=== PATIENT | male | born 1975 | race Caucasian/White ===

== ENCOUNTER 2017-05-05 12:20 | Emergency (ER) | payer SELFPAY ==
[~2017-05-05] VITALS: Ht 172.7 cm; Wt 105.1 kg
[2017-05-05] MEDS ORDERED: SODIUM CHLORIDE 0.9% 1,000 ML IV ONE (12:59)
[2017-05-05 13:24] LABS: MEAN CORPUSCULAR HEMOGLOBIN 26.1 pg (27.5-34.5); MEAN CORPUSCULAR HGB CONC 33.6 g/dL (33.2-36.2); MEAN CORPUSCULAR VOLUME 77.9 fL (81-97); MEAN PLATELET VOLUME 6.6 fL (7.4-10.4); PLATELET COUNT 224 x10^3/uL (130-400); RED BLOOD COUNT 4.39 x10^6/uL (4.38-5.82); RED CELL DISTRIBUTION WIDTH 18.5 % (9.4-14.8)
[2017-05-05 13:31] LABS: ALBUMIN 3.6 g/dL (3.4-5.0); ANION GAP 8 mmol/L (5-15); CALCIUM 8.8 mg/dL (8.5-10.1); CHLORIDE 104 mmol/L (98-107); CREATININE 0.98 mg/dL (0.7-1.3)
[2017-05-05 13:38] LABS: BASOPHILS # (AUTO) 0.04 x10^3/uL (0-0.1); BASOPHILS % (AUTO) 1 % (0-1); EOSINOPHILS % (AUTO) 1 % (1-7); LYMPHOCYTES # (AUTO) 2.12 x10^3/uL (1-3.4); LYMPHOCYTES % (AUTO) 29 % (22-44); MD SCAN; MONOCYTES # (AUTO) 0.87 x10^3/uL (0.2-0.8); MONOCYTES % (AUTO) 12 % (2-9); NEUTROPHILS # (AUTO) 4.24 x10^3/uL (1.8-6.8); NEUTROPHILS % (AUTO) 58 % (42-75)
[2017-05-05 16:19] VITALS: BP 135/65
== END 2017-05-05 16:21 | disposition home or self-care (01) ==
LOC: ED 14:14
DX: M79.621 Pain in right upper arm (principal); M79.622 Pain in left upper arm
CPT/HCPCS: 36415; 80048; 82040; 85025; 93005; 93970; 99285

== ENCOUNTER 2017-05-10 09:19 | Inpatient (IN) | payer MEDICAID, OTHER ==
[~2017-05-10] VITALS: Ht 172.7 cm; Wt 107.4 kg
[2017-05-10] MEDS ORDERED: SODIUM CHLORIDE FLUSH 10ML SYR IVF ONE (11:00)
[2017-05-10 11:51] LABS: BASOPHILS # (AUTO) 0.03 x10^3/uL (0-0.1); BASOPHILS % (AUTO) 0 % (0-1); EOSINOPHILS # (AUTO) 0.13 x10^3/uL (0-0.4); EOSINOPHILS % (AUTO) 2 % (1-7); LYMPHOCYTES # (AUTO) 2.57 x10^3/uL (1-3.4); LYMPHOCYTES % (AUTO) 32 % (22-44); MD NO; MEAN CORPUSCULAR HEMOGLOBIN 26.2 pg (27.5-34.5); MEAN CORPUSCULAR HGB CONC 33.6 g/dL (33.2-36.2); MEAN CORPUSCULAR VOLUME 77.9 fL (81-97); MEAN PLATELET VOLUME 6.6 fL (7.4-10.4); MONOCYTES # (AUTO) 0.66 x10^3/uL (0.2-0.8); MONOCYTES % (AUTO) 8 % (2-9); NEUTROPHILS # (AUTO) 4.76 x10^3/uL (1.8-6.8); NEUTROPHILS % (AUTO) 58 % (42-75); PLATELET COUNT 161 x10^3/uL (130-400); RED CELL DISTRIBUTION WIDTH 18.4 % (9.4-14.8)
[2017-05-10 11:55] LABS: ALANINE AMINOTRANSFERASE 62 U/L (12-78); ALBUMIN 3.8 g/dL (3.4-5.0); ANION GAP 9 mmol/L (5-15); CHLORIDE 105 mmol/L (98-107); CREATININE 0.85 mg/dL (0.7-1.3)
[2017-05-10 11:59] LABS: ALKALINE PHOSPHATASE 61 U/L (45-117); BILIRUBIN,TOTAL 0.7 mg/dL (0.2-1.0); TOTAL PROTEIN 7.9 g/dL (6.4-8.2); TROPONIN I < 0.015 ng/mL (0.000-0.045)
[2017-05-10] MEDS ORDERED: LORazepam 1MG TABLET PO PRN (12:00)
[2017-05-10] MEDS ORDERED: ACETAMINOPHEN 325 MG TABLET PO PRN (12:00)
[2017-05-10] MEDS ORDERED: GUAIFENESIN/DM 200-20MG, 10ML UDC PO PRN (12:00)
[2017-05-10] MEDS ORDERED: ENOXAPARIN 30 MG/0.3 ML SQ SCH (12:00)
[2017-05-10] MEDS ORDERED: GADOBUTROL 10 MMOL/10 ML PFS ONE (12:27)
[2017-05-10 14:30] VITALS: BP 135/84
[2017-05-10 14:34] VITALS: BP 135/84
[2017-05-10] MEDS ORDERED: LIDOCAINE 2%, 20ML ONE (14:55)
[2017-05-10] MEDS ORDERED: FENTANYL PF 100 MCG/2ML ONE ×2 (15:10→15:20)
[2017-05-10] MEDS ORDERED: MIDAZOLAM 1 MG/ML, 2ML ONE ×3 (15:10→15:20)
[2017-05-10] MEDS: morphine SULFATE 10 MG/ML, 1ML IVPush PRN ×2 (16:39→21:18)
[2017-05-10] MEDS: HYDROcodone/APAP 5/325 TABLET PO PRN ×2 (18:17→23:28)
[2017-05-10 19:10] VITALS: BP 127/82
[2017-05-10] MEDS: FAMOTIDINE 20 MG TABLET PO SCH (20:38)
[2017-05-10] MEDS: ALLOPURINOL 300 MG TABLET PO SCH (20:39)
[2017-05-10] MEDS: SODIUM CHLORIDE FLUSH 10ML SYR IVF SCH (20:39)
[2017-05-10] MEDS: ONDANSETRON 2MG/ML, 2ML IVPush PRN (23:53)
[2017-05-11 03:11] VITALS: BP 127/87
[2017-05-11] MEDS: morphine SULFATE 10 MG/ML, 1ML IVPush PRN ×5 (03:23→19:56)
[2017-05-11 05:32] LABS: BASOPHILS # (AUTO) 0.07 x10^3/uL (0-0.1); BASOPHILS % (AUTO) 1 % (0-1); EOSINOPHILS # (AUTO) 0.09 x10^3/uL (0-0.4); EOSINOPHILS % (AUTO) 1 % (1-7); LYMPHOCYTES # (AUTO) 3.46 x10^3/uL (1-3.4); LYMPHOCYTES % (AUTO) 33 % (22-44); MD NO; MEAN CORPUSCULAR HEMOGLOBIN 26.4 pg (27.5-34.5); MEAN CORPUSCULAR HGB CONC 33.7 g/dL (33.2-36.2); MEAN CORPUSCULAR VOLUME 78.3 fL (81-97); MEAN PLATELET VOLUME 6.7 fL (7.4-10.4); MONOCYTES # (AUTO) 1.19 x10^3/uL (0.2-0.8); MONOCYTES % (AUTO) 11 % (2-9); NEUTROPHILS # (AUTO) 5.65 x10^3/uL (1.8-6.8); NEUTROPHILS % (AUTO) 54 % (42-75); PLATELET COUNT 156 x10^3/uL (130-400); RED BLOOD COUNT 4.22 x10^6/uL (4.38-5.82); RED CELL DISTRIBUTION WIDTH 19.4 % (9.4-14.8)
[2017-05-11 05:47] LABS: CHLORIDE 105 mmol/L (98-107)
[2017-05-11 06:02] LABS: ALANINE AMINOTRANSFERASE 56 U/L (12-78); ALBUMIN 3.6 g/dL (3.4-5.0); ALKALINE PHOSPHATASE 58 U/L (45-117); ANION GAP 8 mmol/L (5-15); BILIRUBIN,TOTAL 0.6 mg/dL (0.2-1.0); CALCIUM 8.7 mg/dL (8.5-10.1); CREATININE 0.99 mg/dL (0.7-1.3); TOTAL PROTEIN 7.7 g/dL (6.4-8.2)
[2017-05-11] MEDS: FAMOTIDINE 20 MG TABLET PO SCH ×2 (08:29→20:01)
[2017-05-11] MEDS: ONDANSETRON 2MG/ML, 2ML IVPush PRN ×2 (08:29→18:49)
[2017-05-11 08:30] VITALS: BP 136/87
[2017-05-11] MEDS: ALLOPURINOL 300 MG TABLET PO SCH ×2 (08:30→20:01)
[2017-05-11] MEDS: SODIUM CHLORIDE FLUSH 10ML SYR IVF SCH ×2 (09:00→20:02)
[2017-05-11] MEDS: HYDROcodone/APAP 5/325 TABLET PO PRN (11:05)
[2017-05-11] MEDS ORDERED: MORPHINE SULFATE 4 MG/ML, 1ML ONE (12:14)
[2017-05-11] MEDS ORDERED: LIDOCAINE 1%, 20ML ONE (12:47)
[2017-05-11] MEDS ORDERED: METHOTREXATE/PF 2ML 12 MG in SODIUM CHLORIDE 0.9% 5.52 ML IT ONE (13:00)
[2017-05-11] MEDS ORDERED: METHOTREXATE/PF 2ML 12 MG in SODIUM CHLORIDE 0.9% 4.52 ML IT ONE (13:00)
[2017-05-11 14:30] VITALS: BP 141/89
[2017-05-11 14:44] LABS: GLUCOSE, CSF 66 mg/dL (40-80); TOTAL PROTEIN,CSF 40 mg/dL (15-45)
[2017-05-11] MEDS: DOCUSATE 100 MG CAPSULE PO PRN (18:49)
[2017-05-11 20:00] VITALS: BP 128/81
[2017-05-11] MEDS: TEMAZEPAM 15 MG CAPSULE PO PRN (21:08)
[2017-05-11] MEDS: ENOXAPARIN 30 MG/0.3 ML SQ SCH (21:08)
[2017-05-12 01:41] VITALS: BP 127/83
[2017-05-12] MEDS: morphine SULFATE 10 MG/ML, 1ML IVPush PRN (01:45)
[2017-05-12] MEDS: HYDROcodone/APAP 5/325 TABLET PO PRN ×3 (07:05→20:35)
[2017-05-12 07:10] VITALS: BP 123/88
[2017-05-12 08:34] LABS: BASOPHILS # (AUTO) 0.06 x10^3/uL (0-0.1); BASOPHILS % (AUTO) 1 % (0-1); EOSINOPHILS % (AUTO) 1 % (1-7); LYMPHOCYTES # (AUTO) 3.51 x10^3/uL (1-3.4); LYMPHOCYTES % (AUTO) 34 % (22-44); MD NO; MEAN CORPUSCULAR HEMOGLOBIN 26.2 pg (27.5-34.5); MEAN CORPUSCULAR HGB CONC 33.7 g/dL (33.2-36.2); MEAN CORPUSCULAR VOLUME 77.8 fL (81-97); MEAN PLATELET VOLUME 6.5 fL (7.4-10.4); MONOCYTES % (AUTO) 8 % (2-9); NEUTROPHILS # (AUTO) 5.74 x10^3/uL (1.8-6.8); NEUTROPHILS % (AUTO) 56 % (42-75); PLATELET COUNT 134 x10^3/uL (130-400); RED BLOOD COUNT 4.34 x10^6/uL (4.38-5.82)
[2017-05-12 08:35] LABS: ALANINE AMINOTRANSFERASE 61 U/L (12-78); ALBUMIN 3.8 g/dL (3.4-5.0); ANION GAP 7 mmol/L (5-15); CHLORIDE 103 mmol/L (98-107)
[2017-05-12 08:38] LABS: ALKALINE PHOSPHATASE 65 U/L (45-117); BILIRUBIN,TOTAL 0.8 mg/dL (0.2-1.0); TOTAL PROTEIN 8.2 g/dL (6.4-8.2)
[2017-05-12] MEDS: ENOXAPARIN 30 MG/0.3 ML SQ SCH ×2 (09:27→21:38)
[2017-05-12] MEDS: SODIUM CHLORIDE FLUSH 10ML SYR IVF SCH ×2 (09:28→20:36)
[2017-05-12] MEDS: ALLOPURINOL 300 MG TABLET PO SCH ×2 (09:28→20:37)
[2017-05-12] MEDS: FAMOTIDINE 20 MG TABLET PO SCH ×2 (09:28→20:35)
[2017-05-12 11:14] LABS: % IRON SATURATION 31 % (20-55); IRON LEVEL 81 mcg/dL (65-175); TOTAL IRON BINDING CAPACITY 262 mcg/dL (250-450)
[2017-05-12] MEDS: DOCUSATE 100 MG CAPSULE PO PRN (13:08)
[2017-05-12 13:22] VITALS: BP 125/78
[2017-05-12 20:48] VITALS: BP 135/75
[2017-05-12] MEDS: TEMAZEPAM 15 MG CAPSULE PO PRN (21:38)
[2017-05-13 01:45] VITALS: BP 133/84
[2017-05-13 07:17] VITALS: BP 123/83
[2017-05-13 09:22] LABS: BASOPHILS # (AUTO) 0.02 x10^3/uL (0-0.1); BASOPHILS % (AUTO) 0 % (0-1); EOSINOPHILS # (AUTO) 0.11 x10^3/uL (0-0.4); EOSINOPHILS % (AUTO) 2 % (1-7); LYMPHOCYTES # (AUTO) 2.58 x10^3/uL (1-3.4); LYMPHOCYTES % (AUTO) 36 % (22-44); MD NO; MEAN CORPUSCULAR HEMOGLOBIN 26.2 pg (27.5-34.5); MEAN CORPUSCULAR HGB CONC 33.9 g/dL (33.2-36.2); MEAN CORPUSCULAR VOLUME 77.3 fL (81-97); MEAN PLATELET VOLUME 6.6 fL (7.4-10.4); MONOCYTES # (AUTO) 0.37 x10^3/uL (0.2-0.8); MONOCYTES % (AUTO) 5 % (2-9); NEUTROPHILS # (AUTO) 4.08 x10^3/uL (1.8-6.8); NEUTROPHILS % (AUTO) 57 % (42-75); PLATELET COUNT 106 x10^3/uL (130-400); RED BLOOD COUNT 4.32 x10^6/uL (4.38-5.82); RED CELL DISTRIBUTION WIDTH 19.8 % (9.4-14.8)
[2017-05-13 09:33] LABS: ALANINE AMINOTRANSFERASE 54 U/L (12-78); ALBUMIN 3.7 g/dL (3.4-5.0); ANION GAP 7 mmol/L (5-15); CALCIUM 8.9 mg/dL (8.5-10.1); CHLORIDE 103 mmol/L (98-107); CREATININE 0.85 mg/dL (0.7-1.3)
[2017-05-13 09:35] LABS: ALKALINE PHOSPHATASE 62 U/L (45-117); BILIRUBIN,TOTAL 0.9 mg/dL (0.2-1.0); TOTAL PROTEIN 7.9 g/dL (6.4-8.2)
[2017-05-13] MEDS: FAMOTIDINE 20 MG TABLET PO SCH ×2 (09:43→20:38)
[2017-05-13] MEDS: ALLOPURINOL 300 MG TABLET PO SCH ×2 (09:44→20:39)
[2017-05-13] MEDS: DOCUSATE 100 MG CAPSULE PO PRN (09:44)
[2017-05-13] MEDS: ENOXAPARIN 30 MG/0.3 ML SQ SCH ×2 (09:45→21:34)
[2017-05-13] MEDS: SODIUM CHLORIDE FLUSH 10ML SYR IVF SCH ×2 (09:45→20:42)
[2017-05-13] MEDS: SODIUM CHLORIDE 0.9% 1,000 ML IV SCH ×2 (11:31→20:42)
[2017-05-13 13:47] VITALS: BP 128/77
[2017-05-13 20:58] VITALS: BP 118/77
[2017-05-13] MEDS: TEMAZEPAM 15 MG CAPSULE PO PRN (21:34)
[2017-05-14 01:05] VITALS: BP 118/75
[2017-05-14 04:43] LABS: MEAN CORPUSCULAR HEMOGLOBIN 26.2 pg (27.5-34.5); MEAN CORPUSCULAR VOLUME 77.2 fL (81-97); RED BLOOD COUNT 3.75 x10^6/uL (4.38-5.82); RED CELL DISTRIBUTION WIDTH 19.6 % (9.4-14.8)
[2017-05-14 04:48] LABS: ALBUMIN 3.2 g/dL (3.4-5.0); ANION GAP 9 mmol/L (5-15); CALCIUM 8.1 mg/dL (8.5-10.1); CHLORIDE 104 mmol/L (98-107)
[2017-05-14 04:53] LABS: ALANINE AMINOTRANSFERASE 44 U/L (12-78); ALKALINE PHOSPHATASE 53 U/L (45-117); BILIRUBIN,TOTAL 0.8 mg/dL (0.2-1.0); CREATININE 0.73 mg/dL (0.7-1.3)
[2017-05-14 05:51] LABS: MEAN PLATELET VOLUME 6.5 fL (7.4-10.4); PLATELET COUNT 90 x10^3/uL (130-400)
[2017-05-14 05:53] LABS: BASOPHILS # (AUTO) 0.03 x10^3/uL (0-0.1); BASOPHILS % (AUTO) 1 % (0-1); EOSINOPHILS # (AUTO) 0.07 x10^3/uL (0-0.4); EOSINOPHILS % (AUTO) 1 % (1-7); LYMPHOCYTES # (AUTO) 1.98 x10^3/uL (1-3.4); LYMPHOCYTES % (AUTO) 37 % (22-44); MD SCAN; MONOCYTES # (AUTO) 0.46 x10^3/uL (0.2-0.8); MONOCYTES % (AUTO) 9 % (2-9); NEUTROPHILS # (AUTO) 2.87 x10^3/uL (1.8-6.8); NEUTROPHILS % (AUTO) 53 % (42-75)
[2017-05-14 08:24] VITALS: BP 122/80
[2017-05-14] MEDS: ALLOPURINOL 300 MG TABLET PO SCH ×2 (09:00→21:38)
[2017-05-14] MEDS: DOCUSATE 100 MG CAPSULE PO PRN (09:42)
[2017-05-14] MEDS: FAMOTIDINE 20 MG TABLET PO SCH ×2 (09:42→21:38)
[2017-05-14] MEDS: ENOXAPARIN 30 MG/0.3 ML SQ SCH ×2 (09:43→21:38)
[2017-05-14 13:51] VITALS: BP 120/77
[2017-05-14 20:42] VITALS: BP 126/80
[2017-05-14] MEDS: TEMAZEPAM 15 MG CAPSULE PO PRN (21:37)
[2017-05-14] MEDS: SODIUM CHLORIDE 0.9% 1,000 ML IV SCH (21:38)
[2017-05-15 02:59] VITALS: BP 126/81
[2017-05-15 04:45] LABS: MEAN CORPUSCULAR HEMOGLOBIN 26.4 pg (27.5-34.5); MEAN CORPUSCULAR HGB CONC 34.3 g/dL (33.2-36.2); MEAN PLATELET VOLUME 6.8 fL (7.4-10.4); PLATELET COUNT 81 x10^3/uL (130-400); RED CELL DISTRIBUTION WIDTH 18.9 % (9.4-14.8)
[2017-05-15 04:56] LABS: ALBUMIN 3.1 g/dL (3.4-5.0); ANION GAP 9 mmol/L (5-15); CALCIUM 8.2 mg/dL (8.5-10.1); CHLORIDE 105 mmol/L (98-107)
[2017-05-15 05:01] LABS: ALANINE AMINOTRANSFERASE 49 U/L (12-78); ALKALINE PHOSPHATASE 52 U/L (45-117); BILIRUBIN,TOTAL 0.7 mg/dL (0.2-1.0); CREATININE 0.73 mg/dL (0.7-1.3)
[2017-05-15 05:14] LABS: MD YES
[2017-05-15 05:16] LABS: BANDS%(MANUAL) 9 % (0-7); LYMPH#(MANUAL) 1.63 x10^3/uL (1-3.4); LYMPHS% (MANUAL) 37 % (22-44); METAMYELOCYTES# (MANUAL) 0.18 x10^3/uL (0-0); METAMYELOCYTES% (MANUAL) 4 % (0-1); MONOS#(MANUAL) 0.44 x10^3/uL (0.3-2.7); MONOS% (MANUAL) 10 % (2-9); MYELOCYTES# (MANUAL) 0.09 x10^3/uL (0-0); MYELOCYTES% (MANUAL) 2 % (0-0); NRBC % (MANUAL) 1 % (0-1); SEG#(MANUAL) 1.67 x10^3/uL (1.8-6.8); SEGS% (MANUAL) 38 % (42-75)
[2017-05-15 05:17] LABS: <PLATELET ESTIMATE> DECREASED; <PLT MORPHOLOGY> NORMAL PLT MORPH; ANISOCYTOSIS 1+
[2017-05-15 06:38] VITALS: BP 123/75
[2017-05-15] MEDS: FAMOTIDINE 20 MG TABLET PO SCH ×2 (08:35→21:37)
[2017-05-15] MEDS: ALLOPURINOL 300 MG TABLET PO SCH ×2 (08:36→21:37)
[2017-05-15] MEDS: SODIUM CHLORIDE 0.9% 1,000 ML IV SCH ×3 (08:36→23:45)
[2017-05-15] MEDS: ENOXAPARIN 30 MG/0.3 ML SQ SCH ×2 (08:37→21:37)
[2017-05-15] MEDS ORDERED: PROCHLORPERAZINE 10MG TABLET PO PRN (11:00)
[2017-05-15] MEDS: GRANISETRON 1 MG/ML IV SCH ×2 (11:01→23:45)
[2017-05-15] MEDS: DEXAMETHASONE 40 MG in SODIUM CHLORIDE 0.9% 50 ML IV SCH (11:02)
[2017-05-15] MEDS: SODIUM CHLORIDE 0.9% IVPB SCH (11:59)
[2017-05-15] MEDS: MESNA IVPB SCH (11:59)
[2017-05-15] MEDS: SODIUM CHLORIDE 0.9% IV SCH (12:33)
[2017-05-15] MEDS: CYCLOPHOSPHAMIDE IV SCH (12:33)
[2017-05-15 14:30] VITALS: BP 111/76
[2017-05-15] MEDS: ONDANSETRON 2MG/ML, 2ML IVPush PRN (15:35)
[2017-05-15 19:22] VITALS: BP 119/70
[2017-05-15] MEDS: TEMAZEPAM 15 MG CAPSULE PO PRN (21:37)
[2017-05-16] MEDS: SODIUM CHLORIDE 0.9% IV SCH ×3 (00:24→23:42)
[2017-05-16] MEDS: CYCLOPHOSPHAMIDE IV SCH ×3 (00:24→23:42)
[2017-05-16 03:00] VITALS: BP 111/64
[2017-05-16 05:35] LABS: CHLORIDE 107 mmol/L (98-107)
[2017-05-16 05:42] LABS: MEAN CORPUSCULAR HGB CONC 34.7 g/dL (33.2-36.2); MEAN CORPUSCULAR VOLUME 77.6 fL (81-97); MEAN PLATELET VOLUME 6.8 fL (7.4-10.4); PLATELET COUNT 96 x10^3/uL (130-400); RED BLOOD COUNT 3.39 x10^6/uL (4.38-5.82); RED CELL DISTRIBUTION WIDTH 18.6 % (9.4-14.8)
[2017-05-16 05:48] LABS: ALANINE AMINOTRANSFERASE 52 U/L (12-78); ALBUMIN 2.9 g/dL (3.4-5.0); ALKALINE PHOSPHATASE 50 U/L (45-117); ANION GAP 12 mmol/L (5-15); BILIRUBIN,TOTAL 0.8 mg/dL (0.2-1.0); CALCIUM 8.6 mg/dL (8.5-10.1); CREATININE 0.66 mg/dL (0.7-1.3); TOTAL PROTEIN 6.8 g/dL (6.4-8.2)
[2017-05-16 06:23] LABS: BASOPHILS # (AUTO) 0.01 x10^3/uL (0-0.1); BASOPHILS % (AUTO) 0 % (0-1); EOSINOPHILS % (AUTO) 0 % (1-7); LYMPHOCYTES # (AUTO) 1.14 x10^3/uL (1-3.4); LYMPHOCYTES % (AUTO) 27 % (22-44); MD SCAN; MONOCYTES # (AUTO) 0.19 x10^3/uL (0.2-0.8); MONOCYTES % (AUTO) 4 % (2-9); NEUTROPHILS # (AUTO) 2.88 x10^3/uL (1.8-6.8); NEUTROPHILS % (AUTO) 68 % (42-75)
[2017-05-16] MEDS ORDERED: LIDOCAINE 1%, 20ML ONE (07:53)
[2017-05-16] MEDS: FAMOTIDINE 20 MG TABLET PO SCH ×2 (07:59→20:25)
[2017-05-16] MEDS: ALLOPURINOL 300 MG TABLET PO SCH ×2 (07:59→20:25)
[2017-05-16] MEDS ORDERED: METHOTREXATE/PF 2ML 12 MG in SODIUM CHLORIDE 0.9% 5.52 ML IT ONE (09:00)
[2017-05-16] MEDS: GRANISETRON 1 MG/ML IV SCH ×2 (10:53→23:12)
[2017-05-16] MEDS: DEXAMETHASONE 40 MG in SODIUM CHLORIDE 0.9% 50 ML IV SCH (10:53)
[2017-05-16] MEDS: ENOXAPARIN 30 MG/0.3 ML SQ SCH ×2 (10:53→23:12)
[2017-05-16] MEDS: MESNA IVPB SCH (12:10)
[2017-05-16] MEDS: SODIUM CHLORIDE 0.9% IVPB SCH (12:10)
[2017-05-16] MEDS: SODIUM CHLORIDE 0.9% 1,000 ML IV SCH (13:00)
[2017-05-16 13:17] VITALS: BP 125/74
[2017-05-16 19:25] VITALS: BP 110/58
[2017-05-16] MEDS: TEMAZEPAM 15 MG CAPSULE PO PRN (21:24)
[2017-05-17] MEDS: SODIUM CHLORIDE 0.9% 1,000 ML IV SCH ×3 (00:09→20:51)
[2017-05-17 02:31] VITALS: BP 109/65
[2017-05-17 05:19] LABS: ALBUMIN 2.8 g/dL (3.4-5.0); ANION GAP 7 mmol/L (5-15); CALCIUM 7.6 mg/dL (8.5-10.1); CHLORIDE 110 mmol/L (98-107)
[2017-05-17 05:23] LABS: ALANINE AMINOTRANSFERASE 63 U/L (12-78); ALKALINE PHOSPHATASE 43 U/L (45-117); BILIRUBIN,TOTAL 0.7 mg/dL (0.2-1.0); CREATININE 0.57 mg/dL (0.7-1.3)
[2017-05-17 05:27] LABS: BASOPHILS # (AUTO) 0.01 x10^3/uL (0-0.1); BASOPHILS % (AUTO) 0 % (0-1); EOSINOPHILS # (AUTO) 0.01 x10^3/uL (0-0.4); EOSINOPHILS % (AUTO) 0 % (1-7); LYMPHOCYTES # (AUTO) 0.74 x10^3/uL (1-3.4); LYMPHOCYTES % (AUTO) 21 % (22-44); MD NO; MEAN CORPUSCULAR HEMOGLOBIN 26.6 pg (27.5-34.5); MEAN CORPUSCULAR HGB CONC 34.2 g/dL (33.2-36.2); MEAN CORPUSCULAR VOLUME 77.6 fL (81-97); MEAN PLATELET VOLUME 7.1 fL (7.4-10.4); MONOCYTES # (AUTO) 0.23 x10^3/uL (0.2-0.8); MONOCYTES % (AUTO) 7 % (2-9); NEUTROPHILS # (AUTO) 2.59 x10^3/uL (1.8-6.8); NEUTROPHILS % (AUTO) 72 % (42-75); PLATELET COUNT 102 x10^3/uL (130-400); RED BLOOD COUNT 3.16 x10^6/uL (4.38-5.82)
[2017-05-17 07:37] VITALS: BP 110/72
[2017-05-17] MEDS: ALLOPURINOL 300 MG TABLET PO SCH ×2 (09:27→20:51)
[2017-05-17] MEDS: FAMOTIDINE 20 MG TABLET PO SCH ×2 (09:27→20:51)
[2017-05-17] MEDS: GRANISETRON 1 MG/ML IV SCH ×2 (10:51→23:05)
[2017-05-17] MEDS: ENOXAPARIN 30 MG/0.3 ML SQ SCH ×2 (10:53→23:05)
[2017-05-17] MEDS: DEXAMETHASONE 40 MG in SODIUM CHLORIDE 0.9% 50 ML IV SCH (11:21)
[2017-05-17] MEDS: MESNA IVPB SCH (12:04)
[2017-05-17] MEDS: SODIUM CHLORIDE 0.9% IV SCH ×2 (12:04→23:39)
[2017-05-17] MEDS: SODIUM CHLORIDE 0.9% IVPB SCH (12:04)
[2017-05-17] MEDS: CYCLOPHOSPHAMIDE IV SCH ×2 (12:04→23:39)
[2017-05-17 14:53] VITALS: BP 112/61
[2017-05-17 20:29] VITALS: BP 123/80
[2017-05-17] MEDS: TEMAZEPAM 15 MG CAPSULE PO PRN (21:37)
[2017-05-18 04:30] VITALS: BP 127/81
[2017-05-18] MEDS: SODIUM CHLORIDE 0.9% 1,000 ML IV SCH ×2 (04:57→15:30)
[2017-05-18 05:37] LABS: CHLORIDE 109 mmol/L (98-107)
[2017-05-18 05:43] LABS: ALANINE AMINOTRANSFERASE 85 U/L (12-78); ALBUMIN 2.8 g/dL (3.4-5.0); ALKALINE PHOSPHATASE 49 U/L (45-117); ANION GAP 8 mmol/L (5-15); BILIRUBIN,TOTAL 0.8 mg/dL (0.2-1.0); CREATININE 0.52 mg/dL (0.7-1.3); TOTAL PROTEIN 5.9 g/dL (6.4-8.2)
[2017-05-18 06:28] LABS: MD YES
[2017-05-18 06:29] LABS: MEAN CORPUSCULAR HEMOGLOBIN 26.2 pg (27.5-34.5); MEAN CORPUSCULAR HGB CONC 34.1 g/dL (33.2-36.2); MEAN CORPUSCULAR VOLUME 76.9 fL (81-97); MEAN PLATELET VOLUME 6.9 fL (7.4-10.4); PLATELET COUNT 125 x10^3/uL (130-400); RED BLOOD COUNT 3.02 x10^6/uL (4.38-5.82); RED CELL DISTRIBUTION WIDTH 19.2 % (9.4-14.8)
[2017-05-18 06:34] LABS: BAND#(MANUAL) 0.07 x10^3/uL; BANDS%(MANUAL) 3 % (0-7); LYMPH#(MANUAL) 0.37 x10^3/uL (1-3.4); LYMPHS% (MANUAL) 17 % (22-44); MONOS#(MANUAL) 0.15 x10^3/uL (0.3-2.7); MONOS% (MANUAL) 7 % (2-9); SEG#(MANUAL) 1.56 x10^3/uL (1.8-6.8); SEGS% (MANUAL) 71 % (42-75)
[2017-05-18 06:35] LABS: BLASTS # (MANUAL) 0.04 x10^3/uL (0-0); BLASTS % (MANUAL) 2 % (0-0); NRBC % (MANUAL) 2 % (0-1)
[2017-05-18 06:36] LABS: <PLATELET ESTIMATE> DECREASED; <PLT MORPHOLOGY> NORMAL PLT MORPH; ANISOCYTOSIS 1+; POLYCHROMASIA 1+
[2017-05-18 06:38] LABS: MICROCYTOSIS 1+
[2017-05-18 07:35] VITALS: BP 116/59
[2017-05-18] MEDS: FAMOTIDINE 20 MG TABLET PO SCH ×2 (09:17→20:03)
[2017-05-18] MEDS: ALLOPURINOL 300 MG TABLET PO SCH ×2 (09:17→20:03)
[2017-05-18] MEDS: ENOXAPARIN 30 MG/0.3 ML SQ SCH ×2 (11:10→21:39)
[2017-05-18] MEDS: GRANISETRON 1 MG/ML IV SCH ×2 (11:10→21:39)
[2017-05-18] MEDS: DEXAMETHASONE 40 MG in SODIUM CHLORIDE 0.9% 50 ML IV SCH (11:10)
[2017-05-18 12:51] VITALS: BP 126/68
[2017-05-18] MEDS ORDERED: SODIUM CHLORIDE 0.9% IV ONE (13:00)
[2017-05-18] MEDS ORDERED: DOXORUBICIN IV ONE (13:00)
[2017-05-18 19:42] VITALS: BP 116/63
[2017-05-18] MEDS: TEMAZEPAM 15 MG CAPSULE PO PRN (21:39)
[2017-05-19] MEDS: SODIUM CHLORIDE 0.9% 1,000 ML IV SCH ×3 (00:46→21:03)
[2017-05-19 04:41] VITALS: BP 118/59
[2017-05-19 05:00] LABS: MEAN CORPUSCULAR HEMOGLOBIN 26.5 pg (27.5-34.5); MEAN CORPUSCULAR HGB CONC 34.2 g/dL (33.2-36.2); MEAN CORPUSCULAR VOLUME 77.3 fL (81-97); MEAN PLATELET VOLUME 6.4 fL (7.4-10.4); PLATELET COUNT 166 x10^3/uL (130-400); RED BLOOD COUNT 3.02 x10^6/uL (4.38-5.82)
[2017-05-19 05:08] LABS: ALANINE AMINOTRANSFERASE 147 U/L (12-78); ALBUMIN 2.9 g/dL (3.4-5.0); ANION GAP 9 mmol/L (5-15); CALCIUM 7.6 mg/dL (8.5-10.1); CHLORIDE 106 mmol/L (98-107); CREATININE 0.56 mg/dL (0.7-1.3)
[2017-05-19 05:10] LABS: ALKALINE PHOSPHATASE 43 U/L (45-117); TOTAL PROTEIN 5.9 g/dL (6.4-8.2)
[2017-05-19 05:43] LABS: MD YES
[2017-05-19 05:49] LABS: BAND#(MANUAL) 0.02 x10^3/uL; BANDS%(MANUAL) 1 % (0-7); LYMPH#(MANUAL) 0.23 x10^3/uL (1-3.4); LYMPHS% (MANUAL) 11 % (22-44); MONOS#(MANUAL) 0.21 x10^3/uL (0.3-2.7); MONOS% (MANUAL) 10 % (2-9); NRBC % (MANUAL) 2 % (0-1); SEG#(MANUAL) 1.64 x10^3/uL (1.8-6.8); SEGS% (MANUAL) 78 % (42-75)
[2017-05-19 05:50] LABS: ANISOCYTOSIS 1+; POLYCHROMASIA 1+
[2017-05-19 05:51] LABS: <PLATELET ESTIMATE> ADEQUATE
[2017-05-19 05:53] LABS: HYPOGRAN PLTS 1+
[2017-05-19 07:10] VITALS: BP 113/54
[2017-05-19] MEDS: FAMOTIDINE 20 MG TABLET PO SCH ×2 (08:53→21:39)
[2017-05-19] MEDS: ALLOPURINOL 300 MG TABLET PO SCH ×2 (08:53→21:39)
[2017-05-19] MEDS: ENOXAPARIN 30 MG/0.3 ML SQ SCH ×2 (10:50→21:39)
[2017-05-19] MEDS: GRANISETRON 1 MG/ML IV SCH ×2 (10:50→21:39)
[2017-05-19 13:21] VITALS: BP 113/68
[2017-05-19 18:28] VITALS: BP 123/62
[2017-05-19] MEDS: TEMAZEPAM 15 MG CAPSULE PO PRN (21:39)
[2017-05-20 04:10] VITALS: BP 120/58
[2017-05-20 04:49] LABS: CHLORIDE 108 mmol/L (98-107)
[2017-05-20 04:50] LABS: MEAN CORPUSCULAR HEMOGLOBIN 26.5 pg (27.5-34.5); MEAN CORPUSCULAR HGB CONC 34.5 g/dL (33.2-36.2); MEAN CORPUSCULAR VOLUME 76.9 fL (81-97); MEAN PLATELET VOLUME 6.2 fL (7.4-10.4); PLATELET COUNT 208 x10^3/uL (130-400); RED BLOOD COUNT 2.99 x10^6/uL (4.38-5.82); RED CELL DISTRIBUTION WIDTH 19.4 % (9.4-14.8)
[2017-05-20 04:58] LABS: ALANINE AMINOTRANSFERASE 364 U/L (12-78); ALBUMIN 2.7 g/dL (3.4-5.0); ALKALINE PHOSPHATASE 49 U/L (45-117); ANION GAP 7 mmol/L (5-15); BILIRUBIN,TOTAL 0.9 mg/dL (0.2-1.0); CALCIUM 7.8 mg/dL (8.5-10.1); CREATININE 0.54 mg/dL (0.7-1.3); TOTAL PROTEIN 5.6 g/dL (6.4-8.2)
[2017-05-20 05:44] LABS: MD YES
[2017-05-20 05:47] LABS: BAND#(MANUAL) 0.01 x10^3/uL; BANDS%(MANUAL) 1 % (0-7); EOS#(MANUAL) 0.01 x10^3/uL (0.0-0.4); EOS% (MANUAL) 1 % (1-7); LYMPH#(MANUAL) 0.37 x10^3/uL (1-3.4); LYMPHS% (MANUAL) 34 % (22-44); MONOS#(MANUAL) 0.07 x10^3/uL (0.3-2.7); MONOS% (MANUAL) 6 % (2-9); NRBC % (MANUAL) 1 % (0-1); SEG#(MANUAL) 0.64 x10^3/uL (1.8-6.8); SEGS% (MANUAL) 58 % (42-75)
[2017-05-20 05:48] LABS: <PLATELET ESTIMATE> ADEQUATE; <PLT MORPHOLOGY> NORMAL PLT MORPH; ANISOCYTOSIS 1+; BASOPHILLIC STIPPLING 1+; POLYCHROMASIA 1+
[2017-05-20 05:49] LABS: MICROCYTOSIS 1+
[2017-05-20] MEDS: SODIUM CHLORIDE 0.9% 1,000 ML IV SCH ×2 (06:37→15:51)
[2017-05-20 07:02] VITALS: BP 111/63
[2017-05-20] MEDS: FAMOTIDINE 20 MG TABLET PO SCH ×2 (09:42→21:58)
[2017-05-20] MEDS: ALLOPURINOL 300 MG TABLET PO SCH ×2 (09:42→21:58)
[2017-05-20] MEDS: ENOXAPARIN 30 MG/0.3 ML SQ SCH ×2 (11:31→21:59)
[2017-05-20] MEDS: GRANISETRON 1 MG/ML IV SCH ×2 (11:31→21:59)
[2017-05-20 12:46] VITALS: BP 105/57
[2017-05-20 19:26] VITALS: BP 112/62
[2017-05-20] MEDS ORDERED: TBO-FILGRASTIM 480 MCG/0.8 ML SQ ONE (20:30)
[2017-05-20] MEDS: TEMAZEPAM 15 MG CAPSULE PO PRN (21:58)
[2017-05-21] MEDS: SODIUM CHLORIDE 0.9% 1,000 ML IV SCH ×3 (03:34→22:57)
[2017-05-21 04:40] VITALS: BP 101/68
[2017-05-21 04:51] LABS: MEAN CORPUSCULAR HEMOGLOBIN 26.1 pg (27.5-34.5); MEAN CORPUSCULAR HGB CONC 34.4 g/dL (33.2-36.2); MEAN CORPUSCULAR VOLUME 76.1 fL (81-97); MEAN PLATELET VOLUME 6.1 fL (7.4-10.4); PLATELET COUNT 201 x10^3/uL (130-400); RED BLOOD COUNT 2.88 x10^6/uL (4.38-5.82); RED CELL DISTRIBUTION WIDTH 18.9 % (9.4-14.8)
[2017-05-21 05:00] LABS: ALANINE AMINOTRANSFERASE 258 U/L (12-78); ALBUMIN 2.8 g/dL (3.4-5.0); ANION GAP 5 mmol/L (5-15); CHLORIDE 105 mmol/L (98-107); CREATININE 0.59 mg/dL (0.7-1.3)
[2017-05-21 05:02] LABS: ALKALINE PHOSPHATASE 49 U/L (45-117); TOTAL PROTEIN 5.5 g/dL (6.4-8.2)
[2017-05-21 05:36] LABS: MD YES
[2017-05-21 05:45] LABS: EOS#(MANUAL) 0.03 x10^3/uL (0.0-0.4); EOS% (MANUAL) 4 % (1-7); LYMPH#(MANUAL) 0.21 x10^3/uL (1-3.4); LYMPHS% (MANUAL) 26 % (22-44); MONOS#(MANUAL) 0.03 x10^3/uL (0.3-2.7); MONOS% (MANUAL) 4 % (2-9); SEG#(MANUAL) 0.53 x10^3/uL (1.8-6.8); SEGS% (MANUAL) 66 % (42-75)
[2017-05-21 05:47] LABS: ANISOCYTOSIS 1+; MICROCYTOSIS 1+
[2017-05-21 05:48] LABS: <PLATELET ESTIMATE> ADEQUATE; <PLT MORPHOLOGY> NORMAL PLT MORPH
[2017-05-21 06:56] VITALS: BP 102/66
[2017-05-21] MEDS: ALLOPURINOL 300 MG TABLET PO SCH ×2 (08:14→20:45)
[2017-05-21] MEDS: FAMOTIDINE 20 MG TABLET PO SCH ×2 (08:14→20:45)
[2017-05-21] MEDS: GRANISETRON 1 MG/ML IV SCH ×2 (11:10→22:57)
[2017-05-21] MEDS: ONDANSETRON 2MG/ML, 2ML IVPush PRN (11:10)
[2017-05-21] MEDS: ENOXAPARIN 30 MG/0.3 ML SQ SCH ×2 (11:10→22:58)
[2017-05-21 13:30] VITALS: BP 100/62
[2017-05-21] MEDS: LEVOFLOXACIN 500 MG TABLET PO SCH (18:19)
[2017-05-21 19:32] VITALS: BP 132/77
[2017-05-21] MEDS: TBO-FILGRASTIM 480 MCG/0.8 ML SQ SCH (20:48)
[2017-05-21] MEDS ORDERED: ACYCLOVIR 200 MG CAPSULE PO SCH (21:00)
[2017-05-21] MEDS: TEMAZEPAM 15 MG CAPSULE PO PRN (22:57)
[2017-05-22 01:02] VITALS: BP 126/72
[2017-05-22 06:21] LABS: ALANINE AMINOTRANSFERASE 174 U/L (12-78); ALBUMIN 2.8 g/dL (3.4-5.0); ANION GAP 8 mmol/L (5-15); CALCIUM 7.8 mg/dL (8.5-10.1); CHLORIDE 106 mmol/L (98-107)
[2017-05-22 06:24] LABS: ALKALINE PHOSPHATASE 51 U/L (45-117); CREATININE 0.58 mg/dL (0.7-1.3); TOTAL PROTEIN 5.9 g/dL (6.4-8.2)
[2017-05-22 06:33] LABS: MEAN CORPUSCULAR HEMOGLOBIN 25.7 pg (27.5-34.5); MEAN CORPUSCULAR HGB CONC 33.3 g/dL (33.2-36.2); MEAN CORPUSCULAR VOLUME 77.2 fL (81-97); MEAN PLATELET VOLUME 6.1 fL (7.4-10.4); PLATELET COUNT 175 x10^3/uL (130-400); RED BLOOD COUNT 2.69 x10^6/uL (4.38-5.82); RED CELL DISTRIBUTION WIDTH 18.7 % (9.4-14.8)
[2017-05-22 07:49] LABS: MD YES
[2017-05-22 08:08] VITALS: BP 113/73
[2017-05-22 08:21] LABS: <PLATELET ESTIMATE> ADEQUATE; <PLT MORPHOLOGY> NORMAL PLT MORPH; ANISOCYTOSIS 1+; BASOS#(MANUAL) 0.01 x10^3/uL (0-0.1); BASOS% (MANUAL) 2 % (0-1); EOS#(MANUAL) 0.09 x10^3/uL (0.0-0.4); EOS% (MANUAL) 18 % (1-7); HYPOCHROMIA 1+; LYMPH#(MANUAL) 0.14 x10^3/uL (1-3.4); LYMPHS% (MANUAL) 28 % (22-44); MICROCYTOSIS 1+; MONOS#(MANUAL) 0.02 x10^3/uL (0.3-2.7); MONOS% (MANUAL) 4 % (2-9); NRBC % (MANUAL) 2 % (0-1); SEG#(MANUAL) 0.24 x10^3/uL (1.8-6.8); SEGS% (MANUAL) 48 % (42-75); TOXIC GRAN 1+
[2017-05-22] MEDS ORDERED: CYTARABINE/PF 100 MG in SODIUM CHLORIDE 0.9% 4 ML IT ONE (09:00)
[2017-05-22] MEDS: ACYCLOVIR 400 MG TABLET PO SCH ×2 (09:45→21:06)
[2017-05-22] MEDS: SODIUM CHLORIDE 0.9% 1,000 ML IV SCH ×2 (09:45→20:22)
[2017-05-22] MEDS: TBO-FILGRASTIM 480 MCG/0.8 ML SQ SCH (09:45)
[2017-05-22] MEDS: FLUCONAZOLE 100 MG TABLET PO SCH (09:45)
[2017-05-22] MEDS: FAMOTIDINE 20 MG TABLET PO SCH ×2 (09:45→21:06)
[2017-05-22] MEDS: ALLOPURINOL 300 MG TABLET PO SCH ×2 (09:45→21:06)
[2017-05-22] MEDS: ENOXAPARIN 30 MG/0.3 ML SQ SCH (09:46)
[2017-05-22] MEDS: GRANISETRON 1 MG/ML IV SCH ×2 (11:16→23:23)
[2017-05-22] MEDS ORDERED: LIDOCAINE 1%, 20ML ONE (11:57)
[2017-05-22] MEDS ORDERED: ACETAMINOPHEN 325 MG TABLET PO ONE (14:00)
[2017-05-22 14:30] VITALS: BP_SYST 114; BP_DIAS 67; BP_DIAS 86
[2017-05-22 14:54] VITALS: BP 105/64
[2017-05-22 17:07] VITALS: BP 131/70
[2017-05-22] MEDS: LEVOFLOXACIN 500 MG TABLET PO SCH (17:39)
[2017-05-22 19:31] VITALS: BP 124/68
[2017-05-22] MEDS: TEMAZEPAM 15 MG CAPSULE PO PRN (21:06)
[2017-05-23 01:40] VITALS: BP 118/62
[2017-05-23] MEDS: SODIUM CHLORIDE 0.9% 1,000 ML IV SCH ×2 (05:17→17:01)
[2017-05-23 05:53] LABS: MEAN CORPUSCULAR HEMOGLOBIN 27.3 pg (27.5-34.5); MEAN CORPUSCULAR HGB CONC 35.1 g/dL (33.2-36.2); MEAN CORPUSCULAR VOLUME 77.7 fL (81-97); MEAN PLATELET VOLUME 6.4 fL (7.4-10.4); PLATELET COUNT 136 x10^3/uL (130-400); RED BLOOD COUNT 2.83 x10^6/uL (4.38-5.82); RED CELL DISTRIBUTION WIDTH 18.7 % (9.4-14.8)
[2017-05-23 05:59] LABS: ALBUMIN 2.8 g/dL (3.4-5.0); ANION GAP 10 mmol/L (5-15); CALCIUM 7.8 mg/dL (8.5-10.1); CHLORIDE 108 mmol/L (98-107)
[2017-05-23 06:02] LABS: ALANINE AMINOTRANSFERASE 129 U/L (12-78); ALKALINE PHOSPHATASE 53 U/L (45-117); CREATININE 0.59 mg/dL (0.7-1.3); TOTAL PROTEIN 5.9 g/dL (6.4-8.2)
[2017-05-23 06:12] LABS: MD YES
[2017-05-23 06:20] LABS: EOS#(MANUAL) 0.05 x10^3/uL (0.0-0.4); EOS% (MANUAL) 16 % (1-7); LYMPH#(MANUAL) 0.18 x10^3/uL (1-3.4); LYMPHS% (MANUAL) 60 % (22-44); METAMYELOCYTES# (MANUAL) 0.01 x10^3/uL (0-0); METAMYELOCYTES% (MANUAL) 4 % (0-1); MONOS#(MANUAL) 0.01 x10^3/uL (0.3-2.7); MONOS% (MANUAL) 4 % (2-9); SEG#(MANUAL) 0.05 x10^3/uL (1.8-6.8); SEGS% (MANUAL) 16 % (42-75)
[2017-05-23 06:22] LABS: ANISOCYTOSIS 1+; MICROCYTOSIS 1+
[2017-05-23 06:23] LABS: <PLATELET ESTIMATE> ADEQUATE; <PLT MORPHOLOGY> NORMAL PLT MORPH; HYPOCHROMIA 1+
[2017-05-23 07:00] VITALS: BP 128/68
[2017-05-23] MEDS: TBO-FILGRASTIM 480 MCG/0.8 ML SQ SCH (08:52)
[2017-05-23] MEDS: ALLOPURINOL 300 MG TABLET PO SCH ×2 (08:52→21:15)
[2017-05-23] MEDS: ENOXAPARIN 40 MG/0.4 ML SQ SCH (08:52)
[2017-05-23] MEDS: ACYCLOVIR 400 MG TABLET PO SCH ×2 (08:53→21:15)
[2017-05-23] MEDS: FLUCONAZOLE 100 MG TABLET PO SCH (08:53)
[2017-05-23] MEDS: FAMOTIDINE 20 MG TABLET PO SCH ×2 (08:53→21:15)
[2017-05-23] MEDS: GRANISETRON 1 MG/ML IV SCH ×2 (12:41→23:34)
[2017-05-23 12:49] VITALS: BP 128/80
[2017-05-23] MEDS: LEVOFLOXACIN 500 MG TABLET PO SCH (17:06)
[2017-05-23 19:17] VITALS: BP 118/64
[2017-05-23] MEDS: TEMAZEPAM 15 MG CAPSULE PO PRN (21:16)
[2017-05-24 00:59] VITALS: BP 98/63
[2017-05-24] MEDS: SODIUM CHLORIDE 0.9% 1,000 ML IV SCH ×3 (02:56→21:29)
[2017-05-24 06:44] LABS: ALANINE AMINOTRANSFERASE 105 U/L (12-78); ANION GAP 4 mmol/L (5-15); CALCIUM 8.1 mg/dL (8.5-10.1); CHLORIDE 108 mmol/L (98-107); CREATININE 0.62 mg/dL (0.7-1.3)
[2017-05-24 06:45] LABS: MEAN CORPUSCULAR HEMOGLOBIN 26.6 pg (27.5-34.5); MEAN CORPUSCULAR HGB CONC 34.6 g/dL (33.2-36.2); MEAN CORPUSCULAR VOLUME 76.8 fL (81-97); MEAN PLATELET VOLUME 6.2 fL (7.4-10.4); PLATELET COUNT 130 x10^3/uL (130-400); RED BLOOD COUNT 2.89 x10^6/uL (4.38-5.82); RED CELL DISTRIBUTION WIDTH 18.6 % (9.4-14.8)
[2017-05-24 06:46] LABS: ALKALINE PHOSPHATASE 59 U/L (45-117); BILIRUBIN,TOTAL 1.1 mg/dL (0.2-1.0)
[2017-05-24 07:35] VITALS: BP 104/61
[2017-05-24 08:31] LABS: MD YES
[2017-05-24 08:32] LABS: BASOS#(MANUAL) 0.01 x10^3/uL (0-0.1); BASOS% (MANUAL) 7 % (0-1); EOS#(MANUAL) 0.04 x10^3/uL (0.0-0.4); EOS% (MANUAL) 18 % (1-7); LYMPH#(MANUAL) 0.07 x10^3/uL (1-3.4); LYMPHS% (MANUAL) 36 % (22-44); MONOS% (MANUAL) 2 % (2-9); SEG#(MANUAL) 0.07 x10^3/uL (1.8-6.8); SEGS% (MANUAL) 37 % (42-75)
[2017-05-24 08:33] LABS: <PLATELET ESTIMATE> ADEQUATE; <PLT MORPHOLOGY> NORMAL PLT MORPH; ANISOCYTOSIS 1+; HYPOCHROMIA 1+; MICROCYTOSIS 1+
[2017-05-24] MEDS: ALLOPURINOL 300 MG TABLET PO SCH ×2 (09:02→21:00)
[2017-05-24] MEDS: FAMOTIDINE 20 MG TABLET PO SCH ×2 (09:02→21:29)
[2017-05-24] MEDS: FLUCONAZOLE 100 MG TABLET PO SCH (09:02)
[2017-05-24] MEDS: ACYCLOVIR 400 MG TABLET PO SCH ×2 (09:02→21:29)
[2017-05-24] MEDS: ENOXAPARIN 40 MG/0.4 ML SQ SCH (09:03)
[2017-05-24] MEDS: TBO-FILGRASTIM 480 MCG/0.8 ML SQ SCH (09:52)
[2017-05-24] MEDS: GRANISETRON 1 MG/ML IV SCH ×2 (12:08→23:05)
[2017-05-24 13:59] VITALS: BP 118/63
[2017-05-24] MEDS: LEVOFLOXACIN 500 MG TABLET PO SCH (16:58)
[2017-05-24 20:08] VITALS: BP 95/61
[2017-05-24] MEDS: TEMAZEPAM 15 MG CAPSULE PO PRN (21:29)
[2017-05-25] VITALS (9 sets, daily range): BP systolic 99–126; BP diastolic 37–73
[2017-05-25 06:27] LABS: MEAN CORPUSCULAR HEMOGLOBIN 26.4 pg (27.5-34.5); MEAN CORPUSCULAR HGB CONC 34.8 g/dL (33.2-36.2); MEAN PLATELET VOLUME 6.4 fL (7.4-10.4); PLATELET COUNT 95 x10^3/uL (130-400); RED BLOOD COUNT 2.57 x10^6/uL (4.38-5.82); RED CELL DISTRIBUTION WIDTH 17.9 % (9.4-14.8)
[2017-05-25 06:36] LABS: ALANINE AMINOTRANSFERASE 75 U/L (12-78); ALBUMIN 2.9 g/dL (3.4-5.0); ANION GAP 6 mmol/L (5-15); CALCIUM 7.9 mg/dL (8.5-10.1); CHLORIDE 108 mmol/L (98-107); CREATININE 0.63 mg/dL (0.7-1.3)
[2017-05-25 06:38] LABS: ALKALINE PHOSPHATASE 64 U/L (45-117); BILIRUBIN,TOTAL 0.7 mg/dL (0.2-1.0); TOTAL PROTEIN 5.9 g/dL (6.4-8.2)
[2017-05-25 07:20] LABS: MD YES
[2017-05-25 07:25] LABS: LYMPH#(MANUAL) 0.12 x10^3/uL (1-3.4); LYMPHS% (MANUAL) 60 % (22-44); MONOS#(MANUAL) 0.02 x10^3/uL (0.3-2.7); MONOS% (MANUAL) 10 % (2-9); NRBC % (MANUAL) 10 % (0-1); SEG#(MANUAL) 0.06 x10^3/uL (1.8-6.8); SEGS% (MANUAL) 30 % (42-75)
[2017-05-25 07:26] LABS: ANISOCYTOSIS 1+; MICROCYTOSIS 1+
[2017-05-25 07:27] LABS: <PLATELET ESTIMATE> DECREASED; <PLT MORPHOLOGY> NORMAL PLT MORPH; HYPOCHROMIA 1+
[2017-05-25] MEDS: ALLOPURINOL 300 MG TABLET PO SCH ×2 (09:00→21:03)
[2017-05-25] MEDS: TBO-FILGRASTIM 480 MCG/0.8 ML SQ SCH (09:08)
[2017-05-25] MEDS: ACYCLOVIR 400 MG TABLET PO SCH ×2 (09:09→21:03)
[2017-05-25] MEDS: FLUCONAZOLE 100 MG TABLET PO SCH (09:09)
[2017-05-25] MEDS: ENOXAPARIN 40 MG/0.4 ML SQ SCH (09:09)
[2017-05-25] MEDS: FAMOTIDINE 20 MG TABLET PO SCH ×2 (09:09→21:03)
[2017-05-25] MEDS: SODIUM CHLORIDE 0.9% 1,000 ML IV SCH ×2 (09:12→21:24)
[2017-05-25] MEDS ORDERED: ACETAMINOPHEN 325 MG TABLET PO ONE (09:30)
[2017-05-25] MEDS: GRANISETRON 1 MG/ML IV SCH ×2 (13:36→22:47)
[2017-05-25] MEDS: DEXAMETHASONE 40 MG in SODIUM CHLORIDE 0.9% 50 ML IV SCH (13:36)
[2017-05-25] MEDS: LEVOFLOXACIN 500 MG TABLET PO SCH (17:42)
[2017-05-25] MEDS: TEMAZEPAM 15 MG CAPSULE PO PRN (21:03)
[2017-05-26 02:00] VITALS: BP 120/59
[2017-05-26] MEDS: SODIUM CHLORIDE 0.9% 1,000 ML IV SCH ×2 (06:10→13:41)
[2017-05-26 06:33] LABS: ALBUMIN 3.1 g/dL (3.4-5.0); ANION GAP 9 mmol/L (5-15); CALCIUM 8.1 mg/dL (8.5-10.1); CHLORIDE 108 mmol/L (98-107)
[2017-05-26 06:35] LABS: MEAN CORPUSCULAR HEMOGLOBIN 27.1 pg (27.5-34.5); MEAN CORPUSCULAR HGB CONC 35.2 g/dL (33.2-36.2); MEAN PLATELET VOLUME 6.9 fL (7.4-10.4); PLATELET COUNT 105 x10^3/uL (130-400); RED BLOOD COUNT 3.09 x10^6/uL (4.38-5.82); RED CELL DISTRIBUTION WIDTH 18.2 % (9.4-14.8)
[2017-05-26 06:36] LABS: ALANINE AMINOTRANSFERASE 68 U/L (12-78); ALKALINE PHOSPHATASE 65 U/L (45-117); BILIRUBIN,TOTAL 1.1 mg/dL (0.2-1.0); CREATININE 0.64 mg/dL (0.7-1.3); TOTAL PROTEIN 6.3 g/dL (6.4-8.2)
[2017-05-26 06:54] LABS: MD YES
[2017-05-26 07:27] LABS: REACTIVE LYMPHS # (MANUAL) 0.01 x10^3/uL (0-0)
[2017-05-26 07:31] LABS: BAND#(MANUAL) 0.04 x10^3/uL; BANDS%(MANUAL) 12 % (0-7); LYMPH#(MANUAL) 0.08 x10^3/uL (1-3.4); LYMPHS% (MANUAL) 26 % (22-44); MONOS% (MANUAL) 16 % (2-9); SEG#(MANUAL) 0.12 x10^3/uL (1.8-6.8); SEGS% (MANUAL) 40 % (42-75)
[2017-05-26 07:32] LABS: METAMYELOCYTES# (MANUAL) 0.01 x10^3/uL (0-0); METAMYELOCYTES% (MANUAL) 4 % (0-1); MONOS#(MANUAL) 0.05 x10^3/uL (0.3-2.7); NRBC % (MANUAL) 2 % (0-1); REACTIVE LYMPHS % (MANUAL) 2 % (0-0)
[2017-05-26 07:38] LABS: <PLATELET ESTIMATE> DECREASED; <PLT MORPHOLOGY> NORMAL PLT MORPH; ANISOCYTOSIS 1+; HYPOCHROMIA 1+; MICROCYTOSIS 1+
[2017-05-26] MEDS ORDERED: FLUCONAZOLE 100 MG TABLET PO SCH (09:00)
[2017-05-26 09:35] VITALS: BP 121/71
[2017-05-26] MEDS: FAMOTIDINE 20 MG TABLET PO SCH ×2 (09:41→21:12)
[2017-05-26] MEDS: ACYCLOVIR 400 MG TABLET PO SCH ×2 (09:41→21:11)
[2017-05-26] MEDS: ALLOPURINOL 300 MG TABLET PO SCH ×2 (09:41→21:11)
[2017-05-26] MEDS: GRANISETRON 1 MG/ML IV SCH ×2 (10:36→23:05)
[2017-05-26] MEDS: TBO-FILGRASTIM 480 MCG/0.8 ML SQ SCH (10:37)
[2017-05-26] MEDS ORDERED: CATHFLO-ALTEPLASE 2 MG/2 ML CATHFLUSH ONE (12:00)
[2017-05-26] MEDS: DEXAMETHASONE 40 MG in SODIUM CHLORIDE 0.9% 50 ML IV SCH (13:41)
[2017-05-26 15:00] VITALS: BP 110/61
[2017-05-26] MEDS: LEVOFLOXACIN 500 MG TABLET PO SCH (17:09)
[2017-05-26 19:26] VITALS: BP 99/60
[2017-05-26] MEDS: VORICONAZOLE 50 MG TABLET PO SCH (21:12)
[2017-05-26] MEDS: TEMAZEPAM 15 MG CAPSULE PO PRN (21:12)
[2017-05-27 01:05] VITALS: BP 110/68
[2017-05-27] MEDS: SODIUM CHLORIDE 0.9% 1,000 ML IV SCH ×3 (02:49→21:19)
[2017-05-27 06:16] LABS: ALANINE AMINOTRANSFERASE 52 U/L (12-78); ALBUMIN 2.8 g/dL (3.4-5.0); ANION GAP 7 mmol/L (5-15); CALCIUM 7.9 mg/dL (8.5-10.1); CHLORIDE 110 mmol/L (98-107); CREATININE 0.83 mg/dL (0.7-1.3)
[2017-05-27 06:18] LABS: ALKALINE PHOSPHATASE 60 U/L (45-117); BILIRUBIN,TOTAL 0.7 mg/dL (0.2-1.0); TOTAL PROTEIN 5.8 g/dL (6.4-8.2)
[2017-05-27 06:34] LABS: MEAN CORPUSCULAR VOLUME 77.3 fL (81-97); RED BLOOD COUNT 2.79 x10^6/uL (4.38-5.82); RED CELL DISTRIBUTION WIDTH 17.6 % (9.4-14.8)
[2017-05-27 07:13] LABS: MD YES
[2017-05-27 07:14] LABS: BAND#(MANUAL) 0.14 x10^3/uL; BANDS%(MANUAL) 15 % (0-7); LYMPH#(MANUAL) 0.09 x10^3/uL (1-3.4); LYMPHS% (MANUAL) 10 % (22-44); METAMYELOCYTES# (MANUAL) 0.05 x10^3/uL (0-0); METAMYELOCYTES% (MANUAL) 5 % (0-1); MONOS#(MANUAL) 0.23 x10^3/uL (0.3-2.7); MONOS% (MANUAL) 25 % (2-9); MYELOCYTES# (MANUAL) 0.02 x10^3/uL (0-0); MYELOCYTES% (MANUAL) 2 % (0-0); NRBC % (MANUAL) 5 % (0-1); SEG#(MANUAL) 0.39 x10^3/uL (1.8-6.8); SEGS% (MANUAL) 43 % (42-75)
[2017-05-27 07:16] LABS: ANISOCYTOSIS 1+; MICROCYTOSIS 1+
[2017-05-27 07:17] LABS: <PLATELET ESTIMATE> DECREASED
[2017-05-27 07:18] LABS: <PLT MORPHOLOGY> NORMAL PLT MORPH; MEAN PLATELET VOLUME 7.1 fL (7.4-10.4); PLATELET COUNT 94 x10^3/uL (130-400)
[2017-05-27 08:34] VITALS: BP 123/65
[2017-05-27] MEDS: FAMOTIDINE 20 MG TABLET PO SCH ×2 (09:43→21:19)
[2017-05-27] MEDS: VORICONAZOLE 50 MG TABLET PO SCH ×2 (09:44→21:19)
[2017-05-27] MEDS: ALLOPURINOL 300 MG TABLET PO SCH ×2 (09:44→21:19)
[2017-05-27] MEDS: ACYCLOVIR 400 MG TABLET PO SCH ×2 (09:44→21:19)
[2017-05-27] MEDS: TBO-FILGRASTIM 480 MCG/0.8 ML SQ SCH (09:44)
[2017-05-27] MEDS: GRANISETRON 1 MG/ML IV SCH ×2 (11:51→23:04)
[2017-05-27 14:03] VITALS: BP 100/57
[2017-05-27] MEDS: DEXAMETHASONE 40 MG in SODIUM CHLORIDE 0.9% 50 ML IV SCH (14:03)
[2017-05-27] MEDS ORDERED: GADOBUTROL 10 MMOL/10 ML PFS ONE (16:15)
[2017-05-27] MEDS: LEVOFLOXACIN 500 MG TABLET PO SCH (18:12)
[2017-05-27 19:28] VITALS: BP 116/84
[2017-05-27] MEDS: TEMAZEPAM 15 MG CAPSULE PO PRN (21:19)
[2017-05-28 01:19] VITALS: BP 122/88
[2017-05-28] MEDS: SODIUM CHLORIDE 0.9% 1,000 ML IV SCH ×4 (03:07→23:03)
[2017-05-28 06:23] LABS: MEAN CORPUSCULAR HEMOGLOBIN 26.6 pg (27.5-34.5); MEAN CORPUSCULAR HGB CONC 33.9 g/dL (33.2-36.2); MEAN CORPUSCULAR VOLUME 78.6 fL (81-97); MEAN PLATELET VOLUME 7.5 fL (7.4-10.4); PLATELET COUNT 119 x10^3/uL (130-400); RED BLOOD COUNT 2.88 x10^6/uL (4.38-5.82); RED CELL DISTRIBUTION WIDTH 18.4 % (9.4-14.8)
[2017-05-28 06:34] LABS: ALANINE AMINOTRANSFERASE 44 U/L (12-78); ALBUMIN 2.8 g/dL (3.4-5.0); ANION GAP 7 mmol/L (5-15); CHLORIDE 108 mmol/L (98-107); CREATININE 0.63 mg/dL (0.7-1.3)
[2017-05-28 06:36] LABS: ALKALINE PHOSPHATASE 63 U/L (45-117); BILIRUBIN,TOTAL 0.7 mg/dL (0.2-1.0); MD YES; TOTAL PROTEIN 5.4 g/dL (6.4-8.2)
[2017-05-28 06:40] LABS: BANDS%(MANUAL) 21 % (0-7); LYMPH#(MANUAL) 0.09 x10^3/uL (1-3.4); LYMPHS% (MANUAL) 2 % (22-44); METAMYELOCYTES# (MANUAL) 0.09 x10^3/uL (0-0); METAMYELOCYTES% (MANUAL) 2 % (0-1); MONOS#(MANUAL) 0.65 x10^3/uL (0.3-2.7); MONOS% (MANUAL) 15 % (2-9); MYELOCYTES# (MANUAL) 0.04 x10^3/uL (0-0); MYELOCYTES% (MANUAL) 1 % (0-0); NRBC % (MANUAL) 7 % (0-1); SEG#(MANUAL) 2.54 x10^3/uL (1.8-6.8); SEGS% (MANUAL) 59 % (42-75)
[2017-05-28 06:45] LABS: ANISOCYTOSIS 1+; MICROCYTOSIS 1+; POLYCHROMASIA 1+
[2017-05-28 06:46] LABS: TOXIC GRAN 1+
[2017-05-28 06:59] LABS: <PLATELET ESTIMATE> DECREASED; <PLT MORPHOLOGY> NORMAL PLT MORPH
[2017-05-28 08:21] VITALS: BP 115/69
[2017-05-28] MEDS: FAMOTIDINE 20 MG TABLET PO SCH ×2 (09:26→21:12)
[2017-05-28] MEDS: ALLOPURINOL 300 MG TABLET PO SCH ×2 (09:26→21:12)
[2017-05-28] MEDS: ACYCLOVIR 400 MG TABLET PO SCH ×2 (09:26→21:12)
[2017-05-28] MEDS: VORICONAZOLE 50 MG TABLET PO SCH ×2 (09:26→21:12)
[2017-05-28] MEDS: TBO-FILGRASTIM 480 MCG/0.8 ML SQ SCH (09:27)
[2017-05-28] MEDS: GRANISETRON 1 MG/ML IV SCH ×2 (11:47→23:02)
[2017-05-28] MEDS: DEXAMETHASONE 40 MG in SODIUM CHLORIDE 0.9% 50 ML IV SCH (13:24)
[2017-05-28 14:52] VITALS: BP 116/64
[2017-05-28] MEDS: LEVOFLOXACIN 500 MG TABLET PO SCH (17:33)
[2017-05-28 19:49] VITALS: BP 110/68
[2017-05-28] MEDS: TEMAZEPAM 15 MG CAPSULE PO PRN (21:12)
[2017-05-29 05:32] VITALS: BP 100/55
[2017-05-29] MEDS: SODIUM CHLORIDE 0.9% 1,000 ML IV SCH (05:45)
[2017-05-29 06:01] LABS: MEAN CORPUSCULAR HEMOGLOBIN 27.2 pg (27.5-34.5); MEAN CORPUSCULAR HGB CONC 34.5 g/dL (33.2-36.2); MEAN CORPUSCULAR VOLUME 78.8 fL (81-97); MEAN PLATELET VOLUME 7.5 fL (7.4-10.4); PLATELET COUNT 151 x10^3/uL (130-400); RED BLOOD COUNT 2.81 x10^6/uL (4.38-5.82); RED CELL DISTRIBUTION WIDTH 18.7 % (9.4-14.8)
[2017-05-29 06:09] LABS: ALANINE AMINOTRANSFERASE 42 U/L (12-78); ALBUMIN 2.7 g/dL (3.4-5.0); ANION GAP 7 mmol/L (5-15); CALCIUM 7.4 mg/dL (8.5-10.1); CHLORIDE 108 mmol/L (98-107); CREATININE 0.75 mg/dL (0.7-1.3)
[2017-05-29 06:15] LABS: ALKALINE PHOSPHATASE 62 U/L (45-117); BILIRUBIN,TOTAL 0.7 mg/dL (0.2-1.0); TOTAL PROTEIN 5.3 g/dL (6.4-8.2)
[2017-05-29 06:23] LABS: MD YES
[2017-05-29 06:26] LABS: ANISOCYTOSIS 1+; BAND#(MANUAL) 1.21 x10^3/uL; BANDS%(MANUAL) 17 % (0-7); BASOS#(MANUAL) 0.07 x10^3/uL (0-0.1); BASOS% (MANUAL) 1 % (0-1); LYMPH#(MANUAL) 0.28 x10^3/uL (1-3.4); LYMPHS% (MANUAL) 4 % (22-44); METAMYELOCYTES# (MANUAL) 0.14 x10^3/uL (0-0); METAMYELOCYTES% (MANUAL) 2 % (0-1); MICROCYTOSIS 1+; MONOS#(MANUAL) 0.36 x10^3/uL (0.3-2.7); MONOS% (MANUAL) 5 % (2-9); MYELOCYTES# (MANUAL) 0.14 x10^3/uL (0-0); MYELOCYTES% (MANUAL) 2 % (0-0); NRBC % (MANUAL) 7 % (0-1); SEGS% (MANUAL) 69 % (42-75)
[2017-05-29 06:27] LABS: <PLATELET ESTIMATE> ADEQUATE; <PLT MORPHOLOGY> NORMAL PLT MORPH; POLYCHROMASIA 1+
[2017-05-29] MEDS: FAMOTIDINE 20 MG TABLET PO SCH (07:34)
[2017-05-29] MEDS: ACYCLOVIR 400 MG TABLET PO SCH (07:34)
[2017-05-29] MEDS: VORICONAZOLE 50 MG TABLET PO SCH (07:34)
[2017-05-29] MEDS: ALLOPURINOL 300 MG TABLET PO SCH (07:35)
[2017-05-29 08:10] VITALS: BP 114/65
[2017-05-29] MEDS ORDERED: ALLO300T PO (09:10)
[2017-05-29] MEDS: GRANISETRON 1 MG/ML IV SCH (11:07)
== END 2017-05-29 13:33 | disposition home or self-care (01) | DRG 840 ==
LOC: ED 11:36 → EDIP 11:37 → ED 11:45 → 3NW 13:20
PROVIDERS: ADMIT Internal Medicine; ATTEND Hospitalist
PROC: 07DR3ZX Extraction of Iliac Bone Marrow, Percutaneous Approach, Diagnostic (ICD-10-PCS; 2017-05-10)
PROC: 009U3ZX Drainage of Spinal Canal, Percutaneous Approach, Diagnostic (ICD-10-PCS; 2017-05-11)
PROC: B01B1ZZ Fluoroscopy of Spinal Cord using Low Osmolar Contrast (ICD-10-PCS; 2017-05-11)
PROC: 02HV33Z Insertion of Infusion Device into Superior Vena Cava, Percutaneous Approach (ICD-10-PCS; 2017-05-14)
PROC: B5181ZA Fluoroscopy of Superior Vena Cava using Low Osmolar Contrast, Guidance (ICD-10-PCS; 2017-05-14)
PROC: B548ZZA Ultrasonography of Superior Vena Cava, Guidance (ICD-10-PCS; 2017-05-14)
PROC: 009U3ZX Drainage of Spinal Canal, Percutaneous Approach, Diagnostic (ICD-10-PCS; 2017-05-16)
PROC: B01B1ZZ Fluoroscopy of Spinal Cord using Low Osmolar Contrast (ICD-10-PCS; 2017-05-16)
PROC: 009U3ZX Drainage of Spinal Canal, Percutaneous Approach, Diagnostic (ICD-10-PCS; principal; 2017-05-22)
PROC: B01B1ZZ Fluoroscopy of Spinal Cord using Low Osmolar Contrast (ICD-10-PCS; 2017-05-22)
PROC: 30233N1 Transfusion of Nonautologous Red Blood Cells into Peripheral Vein, Percutaneous Approach (ICD-10-PCS; 2017-05-22)
DX: C83.50 Lymphoblastic (diffuse) lymphoma, unspecified site (principal); D61.810 Antineoplastic chemotherapy induced pancytopenia; C91.00 Acute lymphoblastic leukemia not having achieved remission; E46 Unspecified protein-calorie malnutrition; D70.1 Agranulocytosis secondary to cancer chemotherapy; G03.9 Meningitis, unspecified; J90 Pleural effusion, not elsewhere classified; Q28.3 Other malformations of cerebral vessels; I31.3 Pericardial effusion (noninflammatory); F84.0 Autistic disorder; D50.9 Iron deficiency anemia, unspecified; Z68.36 Body mass index [BMI] 36.0-36.9, adult; G93.2 Benign intracranial hypertension; T45.1X5A Adverse effect of antineoplastic and immunosuppressive drugs, initial encounter; Z79.899 Other long term (current) drug therapy
CPT/HCPCS: 36415; 36569; 38222; 62270; 70553; 71045; 71046; 76937; 77001; 77012; 80053; 80074; 82945; 83540; 83550; 83615; 83735; 84100; 84157; 84443; 84484; 84550; 85025; 85060; 85097; 86644; 86645; 86703; 86850; 86900; 86923; 87899; 88108; 88237; 88264; 88280; 88305; 88311; 88313; 89051; 93005; 99156; 99157; 99285; A9585; J1100; J1650; J2250; J2405; J2997; J3010; J3490; J9000; J9070; J9100; J9209; J9250; C1751; G0435; J1447; J1626; J2270; J7030; J7050; J9370; P9040

== ENCOUNTER → 2017-11-14 | Outpatient (CLI) | payer MEDICAID ==
[~2017-11-14] MED LIST: ALLO300T PO; OMNIPAQUE 350 MG/ML, 75ML BOTTLE ONE
== END | disposition home or self-care (01) ==
LOC: RAD 12:17
DX: C91.00 Acute lymphoblastic leukemia not having achieved remission (principal); I51.7 Cardiomegaly; Z79.899 Other long term (current) drug therapy
CPT/HCPCS: 70100; 70220; 71260; 93005; 93306; 94010; 94729; J1642; Q9967

== ENCOUNTER 2018-06-18 13:57 | Outpatient (CLI) | payer MEDICAID ==
[~2018-06-18 13:57] MED LIST changes: -OMNIPAQUE 350 MG/ML, 75ML BOTTLE ONE
== END 2018-06-18 23:59 | disposition home or self-care (01) ==
LOC: CARD 13:57
PROVIDERS: ATTEND Internal Medicine
DX: C91.00 Acute lymphoblastic leukemia not having achieved remission (principal)
CPT/HCPCS: 94010; 94726; 94729